=== PATIENT | male | born 1985 | race Two or more races ===

== ENCOUNTER 2019-04-25 20:49 | Emergency (ER) | payer OTHER ==
[~2019-04-25] VITALS: Ht 170.2 cm; Wt 77.1 kg
--- NOTE | 2019-04-25 21:05 | NUR ---
PT BIB RA AND NO [place] [employer] WITH FOR MEDICAL CLEARANCE. PT ARRIVED SEDATED WITH A SPIT MASK ON HIS HEAD. PT WAS TRANSFERED TO THE ER [facility] AND HANDCUFFED TO THE BED. PT IS ON THE MONITOR AND CONTINUOUS PULSE OX. PT'S O2 SAT IS 93% ON RA. PT WAS PLACED ON 2L O2 VIA NC. O2 SAT INCREASED TO 95%. WILL CONTINUE TO MONITOR THE PT. PT IS IN CUSTODY WITH [employer].
--- NOTE | 2019-04-25 21:55 | NUR ---
IN & OUT CATH DONE. APPROX 400 ML PALE YELLOW URINE OUTPUT NOTED. SAMPLE SENT TO LAB.
--- NOTE | 2019-04-25 22:02 | NUR ---
CENTRIFUGAL SCREEN TENDER IS AT THE BEDSIDE FOR BLOOD DRAW.
[2019-04-25 22:05] LABS: BASOPHILS % (AUTO) 0.3 % (0.0-2.0); EOSINOPHILS % (AUTO) 1.2 % (0.0-6.0); HEMATOCRIT 48 % (39-51); HEMOGLOBIN 16.1 g/dL (13.5-17.5); LYMPHOCYTES # (AUTO) 2.4 /CMM (0.8-4.8); LYMPHOCYTES % (AUTO) 20.6 % (20.0-44.0); MEAN CORPUSCULAR HGB CONC 34 g/dl (31.0-36.0); MEAN CORPUSCULAR VOLUME 93 fL (80-96); MONOCYTES # (AUTO) 0.5 /CMM (0.1-1.30); MONOCYTES % (AUTO) 4.7 % (2.0-12.0); NEUTROPHILS # (AUTO) 8.4 /CMM (1.8-8.9); NEUTROPHILS % (AUTO) 73.2 % (43.0-81.0); PLATELET COUNT (AUTO) 234 /CMM (150-450); RED BLOOD CELL COUNT(AUTO) 5.13 MIL/uL (4.5-6.0); WHITE BLOOD COUNT (AUTO) 11.4 K/uL (4.3-11.0)
[2019-04-25 22:17] LABS: CALCIUM, SERUM 8.7 mg/dL (8.5-10.1); CREATININE 0.9 mg/dL (0.6-1.3); POTASSIUM 3.7 mmol/L (3.5-5.1)
[2019-04-25 22:17] LABS: APPEARANCE,URINE Clear (CLEAR); BILIRUBIN,URINE Negative (NEGATIVE); BLOOD, URINE Trace-lysed Ery/uL (NEGATIVE); COLOR,URINE Light yellow (YELLOW); KETONES,URINE Negative (NEGATIVE); LEUKOCYTE ESTERASE ,URINE Negative (NEGATIVE); NITRITE, URINE Negative (NEGATIVE); PROTEIN,URINE Negative (NEGATIVE); UGLUCOSE Negative (NEGATIVE); UROBILINOGEN,URINE 0.2 EU/dL (0.2)
[2019-04-25 22:27] LABS: BACTERIA,URINE Few /HPF (None Seen); MUCUS,URINE Few /LPF (None Seen); RBC,URINE 0-2 /HPF (0-2); SQUAMOUS EPITHELIAL CELL,UR Few /HPF (None Seen); WBC,URINE 0-2 /HPF (0-3)
[2019-04-25 22:30] LABS: ALBUMIN 3.7 g/dL (3.4-5.0); BILIRUBIN,TOTAL 0.2 mg/dL (0.2-1.0); SALICYLATE 1.8 mg/dL (2.8-20.0); TOTAL PROTEIN, SERUM 7.1 g/dL (6.4-8.2)
--- NOTE | 2019-04-25 22:30 | NUR ---
PT APPEARS TO BE SLEEPING SOUNDLY WITH NO S/S OF PAIN OR DISTRESS. PT IS IN CUSTODY AND BILATERAL HANDCUFFS. PT IS ON THE MONITOR AND CONTINUOUS PULSE OX. VSS
--- NOTE | 2019-04-26 00:20 | NUR ---
PT STATED THAT HE HAD TO GO TO THE BATHROOM. POOL WAS MOVED TO THE BATHROOM DOOR AND [employer] TOOK OFF THE PT'S HANDCUFFS. [employer] IS OUTSIDE THE BATHROOM WAITING FOR PT TO FINISH.
--- NOTE | 2019-04-26 00:40 | NUR ---
PT RETURNED TO THE [facility] AND WAS HANDCUFFED TO THE BED ON THE RUE. [facility] WAS RETURNED TO ER 14 AND PT WAS ABLE TO EAT A SANDWICH AND DRINK WATER.
[2019-04-26 01:03] VITALS: BP 115/67
--- NOTE | 2019-04-26 01:05 | NUR ---
Patient discharged to [facility] CUST[facility] in stable condition. Written and verbal after care instructions given. Patient verbalizes understanding of instruction. PT AMBULATED OUT IN HANDCUFFS. PT REC'D GRIPPER SOCKS. VSS.
== END 2019-04-26 01:04 ==
LOC: ER 20:51
DX: F29 Unspecified psychosis not due to a substance or known physiological condition (principal); R41.82 Altered mental status, unspecified; L55.9 Sunburn, unspecified; R45.1 Restlessness and agitation; F10.10 Alcohol abuse, uncomplicated; R00.0 Tachycardia, unspecified; Y90.6 Blood alcohol level of 120-199 mg/100 ml
CPT/HCPCS: 36415; 80048; 80076; 80307; 80329; 81001; 85025; 99284; A6402; 80305; 81000-TC; G0480

== ENCOUNTER 2022-07-11 16:14 | Inpatient (IN) | payer MEDICAID ==
[~2022-07-11] VITALS: Ht 172.7 cm; Wt 68.0 kg
[2022-07-11] MEDS ORDERED: CEFTRIAXONE 1 G in IV D5W 50 ML IV SCH (17:30)
[2022-07-11] MEDS ORDERED: ACETAMINOPHEN 325 MG TABLET PO PRN (17:30)
[2022-07-11] MEDS ORDERED: MAG HYDROX/AL HYDROX/SIMETH 30 ML UDC PO PRN (17:30)
[2022-07-11] MEDS ORDERED: LORAZEPAM INJ 2 MG/ML VIAL IV PRN (17:30)
[2022-07-11] MEDS ORDERED: ONDANSETRON HCL/PF 4 MG/2 ML VIAL IVP PRN (17:30)
[2022-07-11] MEDS ORDERED: Z GUARD REMEDY 4 OZ OINT TP PRN (17:30)
--- NOTE | 2022-07-11 17:30 | NUR ---
MS HEAD OF MUSIC NOTE PT ADMITTED TO UNIT VIA WHEELCHAIR AT 1730 FROM [facility] WITH DIAGNOSIS OF SURGICAL WOUND INFECTION (R LEG). PARACHUTE/COMBATANT DIVER OFFICER PATRICK VAZQUEZ SAW THE PATIENT IN HIS ROOM. A/O X4. ABLE TO MAKE NEEDS KNOWN. PT ORIENTED TO STAFF AND ROOM. V/S TAKEN AND RECORDED. PT ON ROOM AIR, TOLERATING WELL, BREATHING EVEN AND UNLABORED, NO ACUTE RESPIRATORY DISTRESS NOTED. RIGHT LEG SURGICAL WOUNDS NOTED, PICTURES TAKEN, WOUND TREATMENT GIVEN. WOUND CONSULT DONE. BELONGINGS ACCOUNTED FOR, MEDICATIONS SENT TO THE PHARMACY. IV ACCESS NOTED ON RFA #20G INTACT AND PATENT, IVF OF NS @ 75ML/HR STARTED PER MD ORDER. LUNGS CLEAR ON AUSCULTATION. ABDOMEN SOFT, MILD TENDERNESS NOTED ON RIGHT UPPER QUADRANT WITH POSITIVE BOWEL SOUNDS PRESENT. SAFETY PRECAUTIONS IMPLEMENTED: BED IN LOWEST LOCKED POSITION, SIDE RAILS UP X2 CALL LIGHT AND TRAY TABLE WITHIN PLACED W/I EASY REACH OF PT. WILL ENDORSE TO HARDWARE ASSEMBLER.
[2022-07-11] MEDS ORDERED: VANCOMYCIN 1 GM in IV D5W 250ml IV ONE (18:30)
[2022-07-11] MEDS: IV NS 0.9% 1,000 ML IV PRN (18:31)
[2022-07-11 19:16] VITALS: BP 131/72
[2022-07-11 20:00] VITALS: BP 122/74
--- NOTE | 2022-07-11 20:04 | NUR ---
RLE PAIN Patient in bed, c/o right leg pain described as mild. Given Tylenol PO, will reassess pain level.
[2022-07-11] MEDS ORDERED: ZOLPIDEM TARTRATE 5 MG TABLET PO PRN (22:00)
[2022-07-11] MEDS ORDERED: MAGNESIUM HYDROXIDE 30 ML UDC PO PRN (22:00)
[2022-07-12] MEDS: HYDROCODONE/APAP 10/325MG TABLET PO PRN ×6 (02:06→20:50)
--- NOTE | 2022-07-12 02:08 | NUR ---
RLE PAIN Patient stood at bedside, voided urine. Back to bed, c/o Right leg pain 8/10 described as throbbing pain. Given [place], will reassess pain level.
--- NOTE | 2022-07-12 06:12 | NUR ---
END OF SHIFT REPORT Patient in bed, awake, stable on room air. Patient is Alert Oriented x4. IVF infusing, started on IV abx. Afebrile throughout shift. Right leg pain improved with [place]. RLE wound, specimen collected for wound cx G/S test. Dressing changed. Wound care consult. Patient homeless, social service to follow. MRSA Surveillance test. Fall precaution maintained. Will endorsed to oncoming RN.
[2022-07-12 06:42] LABS: BASOPHILS % (AUTO) 0.5 % (0.0-2.0); HEMATOCRIT 39 % (39-51); HEMOGLOBIN 13.3 g/dL (13.5-17.5); LYMPHOCYTES # (AUTO) 1.6 K/uL (0.8-4.8); LYMPHOCYTES % (AUTO) 28.8 % (20.0-44.0); MEAN CORPUSCULAR HGB CONC 34 g/dl (31.0-36.0); MEAN CORPUSCULAR VOLUME 91 fL (80-96); MONOCYTES # (AUTO) 0.5 K/uL (0.1-1.30); MONOCYTES % (AUTO) 9.4 % (2.0-12.0); NEUTROPHILS # (AUTO) 3.3 K/uL (1.8-8.9); NEUTROPHILS % (AUTO) 58.3 % (43.0-81.0); PLATELET COUNT (AUTO) 181 K/uL (150-450); RED BLOOD CELL COUNT(AUTO) 4.32 MIL/uL (4.5-6.0); WHITE BLOOD COUNT (AUTO) 5.7 K/uL (4.3-11.0)
[2022-07-12 07:17] LABS: CALCIUM, SERUM 8.6 mg/dL (8.5-10.1); CREATININE 0.7 mg/dL (0.6-1.3); MAGNESIUM 1.7 mg/dL (1.8-2.4); PHOSPHORUS 3.5 mg/dL (2.5-4.9); POTASSIUM 3.5 mmol/L (3.5-5.1)
--- NOTE | 2022-07-12 07:30 | NUR ---
RN Receiving Note PT sleeping but easily aroused, AOx4, able to express his own concerns. Patient with no signs of distress. Discussed plan of care, pt agrees. All Safety precautions taken, call and table within reach, bed at lowest position. Will continue to monitor throughout shift, provide care as needed, and medications as prescribed
[2022-07-12 08:00] VITALS: BP 106/64
[2022-07-12] MEDS: IV NS 0.9% 1,000 ML IV PRN (09:58)
[2022-07-12] MEDS: VANCOMYCIN 1 GM in IV D5W 250 ML IV SCH ×2 (10:42→17:23)
[2022-07-12] MEDS: Magnesium 1GM/D5W 100ML PREMIX 100 ML IV SCH ×2 (12:52→13:56)
[2022-07-12 16:00] VITALS: BP 118/82
[2022-07-12] MEDS ORDERED: CEFTRIAXONE 1 G in IV D5W 50 ML IV SCH (18:00)
--- NOTE | 2022-07-12 18:09 | NUR ---
Pt AOx4, able to express his own concerns. Pt remained safe throughout shift. Provided all medications and fluids as ordered and provided care as needed. Provided pain medication as needed. Educated pt on importance of fall precautions and keeping affected leg clean and dry. Call light and table within reach, bed at lowest position.
[2022-07-12 20:00] VITALS: BP 121/81
--- NOTE | 2022-07-12 20:15 | NUR ---
MS RN OPENING NOTE PATIENT AWAKE IN BED, ALERT/ORIENTED X 4, PT ABLE TO MAKE NEEDS KNOWN. PATIENT STABLE ON RA, NO S/S OF DISTRESS OR SOB NOTED, BREATHING EVEN AND UNLABORED. IV ACCESS ON RIGHT FOREARM #20G INTACT AND PATENT, INFUSING NS @ 75 ML/HR. PATIENT REPORTING 5/10 RIGHT LEG PAIN, WILL ADMINISTER PAIN MEDICATION WHEN DUE. RIGHT LEG WOUND DRESSING CLEAN, DRY AND INTACT. SAFETY MEASURES IN PLACE: CALL LIGHT WITHIN REACH, SIDE RAILS UP X 2, BED LOCKED IN LOWEST POSITION, BED ALARM ON. WILL CONTINUE TO MONITOR PATIENT
[2022-07-13] MEDS: VANCOMYCIN 1 GM in IV D5W 250 ML IV SCH ×3 (01:23→17:08)
[2022-07-13] MEDS: HYDROCODONE/APAP 10/325MG TABLET PO PRN ×3 (04:00→21:10)
--- NOTE | 2022-07-13 04:05 | NUR ---
MS RN NOTE PATIENT C/O RIGHT LEG PAIN 05/21. NORCO 10-325 MG Q4H PRN GIVEN ORDERED, WILL REASSESS PAIN LEVEL
[2022-07-13] MEDS: IV NS 0.9% 1,000 ML IV PRN (05:20)
--- NOTE | 2022-07-13 06:16 | NUR ---
MS RN CLOSING NOTE PATIENT AWAKE IN BED, ALERT/ORIENTED X 4, PT ABLE TO MAKE NEEDS KNOWN. NO SIGNIFICANT CHANGES THROUGHOUT SHIFT, PT SLEPT WELL THROUGH THE NIGHT. PATIENT STABLE ON RA, NO S/S OF DISTRESS OR SOB NOTED, BREATHING EVEN AND UNLABORED. IV ACCESS ON RIGHT FOREARM #20G INTACT AND PATENT, INFUSING NS @ 75 ML/HR. RIGHT LEG ELEVATED, WOUND DRESSING CLEAN, DRY AND INTACT. MEDICATIONS GIVEN ORDERED, PT NEEDS MET THROUGHOUT SHIFT. SAFETY MEASURES IN PLACE: CALL LIGHT WITHIN REACH, SIDE RAILS UP X 2, BED LOCKED IN LOWEST POSITION, BED ALARM ON. WILL ENDORSE TO DAYSHIFT NURSE FOR CONTINUITY OF CARE
[2022-07-13 06:23] LABS: BASOPHILS % (AUTO) 0.3 % (0.0-2.0); EOSINOPHILS % (AUTO) 2.9 % (0.0-6.0); HEMATOCRIT 39 % (39-51); HEMOGLOBIN 12.8 g/dL (13.5-17.5); LYMPHOCYTES # (AUTO) 1.6 K/uL (0.8-4.8); LYMPHOCYTES % (AUTO) 29.1 % (20.0-44.0); MEAN CORPUSCULAR HGB CONC 33 g/dl (31.0-36.0); MEAN CORPUSCULAR VOLUME 92 fL (80-96); MONOCYTES # (AUTO) 0.5 K/uL (0.1-1.30); MONOCYTES % (AUTO) 9.5 % (2.0-12.0); NEUTROPHILS # (AUTO) 3.2 K/uL (1.8-8.9); NEUTROPHILS % (AUTO) 58.2 % (43.0-81.0); PLATELET COUNT (AUTO) 169 K/uL (150-450); RED BLOOD CELL COUNT(AUTO) 4.24 MIL/uL (4.5-6.0); WHITE BLOOD COUNT (AUTO) 5.4 K/uL (4.3-11.0)
[2022-07-13 06:44] LABS: CALCIUM, SERUM 8.8 mg/dL (8.5-10.1); CREATININE 0.7 mg/dL (0.6-1.3); MAGNESIUM 2.1 mg/dL (1.8-2.4); POTASSIUM 3.7 mmol/L (3.5-5.1)
[2022-07-13 08:00] VITALS: BP 121/87
--- NOTE | 2022-07-13 08:08 | NUR ---
RN OPENING NOTE PATIENT RECEIVED IN BED, AO X 4, ABLE TO RESPONDS ALL STIMULI. IN NO ACUTE DISTRESS NOTED. RESPIRATORY EVEN AND UNLABORED ON ROOM AIR. SKIN IS WARM TO TOUCH, KEEP CLEAN/DRY. KEPT ELEVATED HOB FOR ENSURE AIRWAY AND ASPIRATION PRECAUTION, ALSO LOWEST POSITION OF THE BED, S/R UP X 2, BED ALARM IS ON AT ALL THE TIMES. ALL SAFETY PRECAUTION APPLIED. CALL LIGHT WITHIN REACH, WILL CONTINUE TO MONITOR.
[2022-07-13] MEDS: HYDROMORPHONE 1 MG/1 ML DISP.SYRIN IV PRN (10:19)
[2022-07-13] MEDS: CEFEPIME 2 GM in IV D5W 100 ML IV SCH ×2 (13:47→21:09)
[2022-07-13 16:00] VITALS: BP 157/77
--- NOTE | 2022-07-13 18:45 | NUR ---
RN CLOSING NOTE PATIENT IN BED RESTING. IN NO ACUTE DISTRESS NOTED. RESPIRATORY EVEN AND UNLABORED IN ROOM AIR. SKIN IS WARM TO TOUCH, KEEP CLEAN/DRY. C/O RIGHT LOWER LEG PAIN AND GIVEN NORCO 10MG, NO FURTHER RIGHT LEG PAIN. KEPT LOWEST BED POSITION AND LOCKED. BED ALARM IS ON AT ALL THE TIMES. ALL SAFETY MEASURED IN PLACED. CALL LIGHT WITHIN REACH, WILL ENDORSED TO NEXT SHIFT.
[2022-07-13 20:00] VITALS: BP 122/83
--- NOTE | 2022-07-13 20:00 | NUR ---
MS RN OPENING NOTE PATIENT AWAKE IN BED, ALERT/ORIENTED X 4, PT ABLE TO MAKE NEEDS KNOWN. PATIENT STABLE ON RA, NO S/S OF DISTRESS OR SOB NOTED, BREATHING EVEN AND UNLABORED. IV ACCESS ON RIGHT FOREARM #20G INTACT AND PATENT, INFUSING NS @ 75 ML/HR. PATIENT REPORTING 6-7/10 RIGHT LEG PAIN, WILL ADMINISTER PAIN MEDICATION WHEN DUE. RIGHT LEG WOUND DRESSING CLEAN, DRY AND INTACT. SAFETY MEASURES IN PLACE: CALL LIGHT WITHIN REACH, SIDE RAILS UP X 2, BED LOCKED IN LOWEST POSITION, BED ALARM ON. WILL CONTINUE TO MONITOR PATIENT
--- NOTE | 2022-07-13 21:14 | NUR ---
MS RN NOTE PATIENT C/O 8/10 RIGHT LEG PAIN. PRN NORCO 10-325 MG PO GIVEN ORDERED. WILL CONTINUE TO ASSESS PATIENT
[2022-07-14] MEDS: IV NS 0.9% 1,000 ML IV PRN (01:10)
[2022-07-14] MEDS: VANCOMYCIN 1 GM in IV D5W 250 ML IV SCH ×3 (01:10→17:44)
[2022-07-14] MEDS: HYDROCODONE/APAP 10/325MG TABLET PO PRN ×5 (01:11→21:48)
--- NOTE | 2022-07-14 01:20 | NUR ---
MS RN NOTE PATIENT C/O 8/10 RIGHT LEG PAIN AFTER AMBULATING TO BATHROOM. PRN NORCO 10-325 MG Q4H GIVEN ORDERED. WILL CONTINUE TO MONITOR PATIENT
--- NOTE | 2022-07-14 05:14 | NUR ---
MS RN NOTE PATIENT C/O 8/10 RIGHT LEG PAIN. PRN NORCO 10-325 MG PO GIVEN ORDERED. WILL CONTINUE TO ASSESS PATIENT
[2022-07-14 06:01] LABS: CREATININE 0.8 mg/dL (0.6-1.3); POTASSIUM 3.8 mmol/L (3.5-5.1)
--- NOTE | 2022-07-14 06:25 | NUR ---
MS RN CLOSING NOTE PATIENT SLEEPING IN BED, ALERT/ORIENTED X 4, PT ABLE TO MAKE NEEDS KNOWN. NO SIGNIFICANT CHANGES THROUGHOUT SHIFT. PATIENT STABLE ON RA, NO S/S OF DISTRESS OR SOB NOTED, BREATHING EVEN AND UNLABORED. IV ACCESS ON LEFT HAND #22G INTACT AND PATENT, INFUSING NS @ 75 ML/HR. RIGHT LEG ELEVATED, WOUND DRESSING CLEAN, DRY AND INTACT, WOUND PHOTOS TAKEN THIS SHIFT. MEDICATIONS GIVEN ORDERED, PT NEEDS MET THROUGHOUT SHIFT. SAFETY MEASURES IN PLACE: CALL LIGHT WITHIN REACH, SIDE RAILS UP X 2, BED LOCKED IN LOWEST POSITION, BED ALARM ON. WILL ENDORSE TO DAYSHIFT NURSE FOR CONTINUITY OF CARE
--- NOTE | 2022-07-14 07:21 | NUR ---
RN OPENING NOTES RECEIVED PATIENT AWAKE IN BED, ALERT/ORIENTED X 3, PATIENT STABLE ON RA, NO S/S OF DISTRESS OR SOB NOTED, BREATHING EVEN AND UNLABORED. IV ACCESS ON RIGHT FOREARM #20G INTACT AND PATENT, INFUSING NS @ 75 ML/HR. RIGHT LEG WOUND DRESSING CLEAN, DRY AND INTACT. SAFETY MEASURES IN PLACE: CALL LIGHT WITHIN REACH, SIDE RAILS UP X 2, BED LOCKED IN LOWEST POSITION, BED ALARM ON. WILL CONTINUE TO MONITOR PATIENT.
[2022-07-14 08:00] VITALS: BP 122/83
[2022-07-14] MEDS: CEFEPIME 2 GM in IV D5W 100 ML IV SCH ×2 (08:46→20:04)
--- NOTE | 2022-07-14 10:22 | NUR ---
WOUND CARE CONSULT: PT PRESENTS WITH CLOSED INCISIONS TO RT THIGH AND RT LOWER LEG WELL OPEN ABRASION TO RT LATERAL LOWER LEG AND DRY ESCHAR TO RT DORSAL FOOT, ALL PRESENT ON ADMISSION. DR YOU CALLED FOR SURGICAL/DPM CONSULT REQUEST. XEROFORM DSGS ARE IN USE FOR OPEN AREAS, COVERED WITH ABD PADS AND SECURED WITH KERLIX/BURN NET. DISCUSSED SKIN PROTECTION WITH NURSING STAFF. MD IN AGREEMENT WITH PLAN OF CARE.
[2022-07-14 16:00] VITALS: BP 126/87
[2022-07-14] MEDS: HYDROMORPHONE 1 MG/1 ML DISP.SYRIN IV PRN (16:10)
--- NOTE | 2022-07-14 16:17 | NUR ---
RN NOTES PT COMPLAINED OF RIGHT FOOT/LEG PAIN, 7-8 SCALE, PRN DILAUDID 1MG IV PUSH GIVEN AT 1610. WILL CONTINUE TO MONITOR AND REASSESS PATIENT.
--- NOTE | 2022-07-14 17:30 | NUR ---
RN NOTES RUSSELL GARCIA CAME TO SEE PT AND ORDERED TO DO RIGHT LOWER LEG WOUND DBRIDEMENTS. PT SIGNED CONSENT. DR SUAREZ WITH ORDER TO GIVE PRN NORCO 10/325 MG PO DURING PROCEDURE AND WAS ADMINISTERED AT 1659. WOUND ARIELLA REMOVED BY ERICK.
--- NOTE | 2022-07-14 18:32 | NUR ---
RN CLOSING NOTE PATIENT AWAKE IN BED, ALERT/ORIENTED X 4, PT ABLE TO MAKE NEEDS KNOWN. PATIENT STABLE ON RA, NO S/S OF DISTRESS OR SOB NOTED, BREATHING EVEN AND UNLABORED. IV ACCESS ON LEFT HAND #22G INTACT AND PATENT, INFUSING NS @ 75 ML/HR. RIGHT LEG ELEVATED, WOUND DRESSING CLEAN, DRY AND INTACT. DR SUAREZ CAME TO DO WOUND DEBRIDEMENT. MEDICATIONS GIVEN ORDERED FOR PAIN, PT NEEDS MET THROUGHOUT SHIFT. SAFETY MEASURES IN PLACE: CALL LIGHT WITHIN REACH, SIDE RAILS UP X 2, BED LOCKED IN LOWEST POSITION, BED ALARM ON. WILL ENDORSE TO NIGHT NURSE FOR CONTINUITY OF CARE.
--- NOTE | 2022-07-14 19:15 | NUR ---
MS RN OPENING NOTE PATIENT AWAKE IN BED, ALERT AND ORIENTED X4, NO S/S OF DISTRESS OR SOB NOTED. BREATHING EVEN AND UNLABORED. ABLE TO MAKE NEEDS KNOWN. PATIENT STABLE ON RA. IV ACCESS ON LEFT HAND #22G INTACT AND PATENT, INFUSING NS @ 75 ML/HR. ON S/P WOUND DEBRIDEMENT ON RIGHT LOWER EXTREMITY. WOUND DRESSING CLEAN, DRY AND INTACT. PT TO REMAIN RLE NWB IN WALKER/CRUTCHES. SAFETY MEASURES IN PLACE: CALL LIGHT WITHIN REACH, SIDE RAILS UP X2, BED LOCKED IN LOWEST POSITION, BED ALARM ON. WILL CONTINUE TO MONITOR PATIENT THROUGHOUT THE SHIFT.
[2022-07-14 20:00] VITALS: BP 134/87
[2022-07-15] MEDS: VANCOMYCIN 1 GM in IV D5W 250 ML IV SCH ×2 (02:14→10:16)
[2022-07-15] MEDS: IV NS 0.9% 1,000 ML IV PRN (03:39)
[2022-07-15] MEDS: HYDROCODONE/APAP 10/325MG TABLET PO PRN ×4 (05:08→20:10)
[2022-07-15 05:54] LABS: BASOPHILS % (AUTO) 0.6 % (0.0-2.0); EOSINOPHILS % (AUTO) 3.9 % (0.0-6.0); HEMATOCRIT 40 % (39-51); HEMOGLOBIN 13.3 g/dL (13.5-17.5); LYMPHOCYTES % (AUTO) 33.1 % (20.0-44.0); MEAN CORPUSCULAR HGB CONC 33 g/dl (31.0-36.0); MEAN CORPUSCULAR VOLUME 91 fL (80-96); MONOCYTES # (AUTO) 0.6 K/uL (0.1-1.30); MONOCYTES % (AUTO) 10.5 % (2.0-12.0); NEUTROPHILS # (AUTO) 3.1 K/uL (1.8-8.9); NEUTROPHILS % (AUTO) 51.9 % (43.0-81.0); PLATELET COUNT (AUTO) 175 K/uL (150-450); RED BLOOD CELL COUNT(AUTO) 4.39 MIL/uL (4.5-6.0); WHITE BLOOD COUNT (AUTO) 5.9 K/uL (4.3-11.0)
--- NOTE | 2022-07-15 06:09 | NUR ---
MS RN CLOSING NOTE PATIENT SLEEPING IN BED, AROUSED EASILY. NO S/S OF DISTRESS OR SOB NOTED. BREATHING EVEN AND UNLABORED. ABLE TO MAKE NEEDS KNOWN. PATIENT STABLE ON RA. IV ACCESS ON LEFT HAND #22G INTACT AND PATENT, INFUSING NS @ 75 ML/HR. ON S/P WOUND DEBRIDEMENT ON RIGHT LOWER EXTREMITY. WOUND DRESSING C/D/I. PT TO REMAIN RLE NWB IN WALKER/CRUTCHES. SAFETY MEASURES IN PLACE: CALL LIGHT WITHIN REACH, SIDE RAILS UP X2, BED LOCKED IN LOWEST POSITION, BED ALARM ON. WILL ENDORSE TO DAY SHIFT NURSE FOR CONTINUITY OF CARE.
[2022-07-15 06:29] LABS: CALCIUM, SERUM 8.8 mg/dL (8.5-10.1); CREATININE 0.8 mg/dL (0.6-1.3); POTASSIUM 3.7 mmol/L (3.5-5.1)
--- NOTE | 2022-07-15 07:40 | NUR ---
MS RN OPENING NOTE PATIENT AWAKE IN BED, ALERT AND ORIENTED X4, NO S/S OF DISTRESS OR SOB NOTED. STABLE ON RA, BREATHING EVEN AND UNLABORED. ABLE TO MAKE NEEDS KNOWN. WAS WITH IV ACCESS ON LEFT HAND #22G INTACT AND PATENT, INFUSING NS @ 75 ML/HR, HOWEVER SHOWING REDNESS AND TENDERNESS, STARTED A NEW IV LINE ON RIGHT FOREARM GAUGE G#20 RUNNING NS @75 ML/HR, PATIENT, FLUSHING WELL. OLD LINE REMOVED, COVERED WITH DRESSING, NO S/SX OF BLEEDING. S/P WOUND DEBRIDEMENT ON RIGHT LOWER EXTREMITY. WOUND DRESSING CLEAN, DRY AND INTACT. PT TO REMAIN RLE NWB IN WALKER/CRUTCHES. SAFETY MEASURES IN PLACE: CALL LIGHT AND TRAY TABLE WITHIN REACH, SIDE RAILS UP X2, BED LOCKED IN LOWEST POSITION, BED ALARM ON. WILL CONTINUE TO MONITOR PATIENT THROUGHOUT THE SHIFT.
[2022-07-15 08:00] VITALS: BP 140/75
[2022-07-15] MEDS: CEFEPIME 2 GM in IV D5W 100 ML IV SCH ×2 (09:05→20:53)
--- NOTE | 2022-07-15 09:30 | NUR ---
RN NOTES - PT AT BEDSIDE
--- NOTE | 2022-07-15 11:15 | NUR ---
RN NOTES WOUND CARE PROVIDED ON THE RIGHT LOWER LEG WOUNDS.
--- NOTE | 2022-07-15 11:20 | NUR ---
RN NOTES- LUÍS SAMANIEGO NP AT BEDSIDE
[2022-07-15] MEDS: GENTAMICIN 0.1% OINT 15 GM TUBE TP SCH ×2 (14:38→17:04)
[2022-07-15 16:00] VITALS: BP 128/76
--- NOTE | 2022-07-15 18:45 | NUR ---
MS RN CLOSING NOTE PATIENT AWAKE IN BED, ALERT AND ORIENTED X4, NO S/S OF DISTRESS OR SOB NOTED. STABLE ON RA, BREATHING EVEN AND UNLABORED. ABLE TO MAKE NEEDS KNOWN.IV LINE ON RIGHT FOREARM GAUGE G#20 RUNNING NS @75 ML/HR, PATIENT, FLUSHING WELL. WOUND CARE PROVIDED. WOUND DRESSING CLEAN, DRY AND INTACT. PT TO REMAIN RLE NWB IN WALKER/CRUTCHES. SAFETY MEASURES MAINTAINED: CALL LIGHT AND TRAY TABLE WITHIN REACH, SIDE RAILS UP X2, BED LOCKED IN LOWEST POSITION, BED ALARM ON. WILL ENDORSE TO THE ULTRASOUND APPLICATIONS SPECIALIST.
[2022-07-15 20:00] VITALS: BP 137/86
--- NOTE | 2022-07-15 20:23 | NUR ---
RLE PAIN Patient stood at bedside, voided urine. C/o right leg pain 8/10. Given PRN [place], will reassess pain level.
[2022-07-16] MEDS: IV NS 0.9% 1,000 ML IV PRN (01:49)
[2022-07-16] MEDS: HYDROCODONE/APAP 10/325MG TABLET PO PRN ×3 (01:51→16:11)
[2022-07-16 06:01] LABS: BASOPHILS % (AUTO) 0.7 % (0.0-2.0); EOSINOPHILS % (AUTO) 4.1 % (0.0-6.0); HEMATOCRIT 43 % (39-51); LYMPHOCYTES # (AUTO) 1.8 K/uL (0.8-4.8); LYMPHOCYTES % (AUTO) 32.3 % (20.0-44.0); MEAN CORPUSCULAR HGB CONC 33 g/dl (31.0-36.0); MEAN CORPUSCULAR VOLUME 91 fL (80-96); MONOCYTES # (AUTO) 0.5 K/uL (0.1-1.30); MONOCYTES % (AUTO) 8.9 % (2.0-12.0); PLATELET COUNT (AUTO) 183 K/uL (150-450); WHITE BLOOD COUNT (AUTO) 5.6 K/uL (4.3-11.0)
[2022-07-16 06:23] LABS: CALCIUM, SERUM 9.2 mg/dL (8.5-10.1); CREATININE 0.8 mg/dL (0.6-1.3); MAGNESIUM 1.9 mg/dL (1.8-2.4); PHOSPHORUS 4.2 mg/dL (2.5-4.9); POTASSIUM 3.6 mmol/L (3.5-5.1)
--- NOTE | 2022-07-16 06:24 | NUR ---
END OF SHIFT REPORT Patient in bed, Alert Oriented x4. IV RFA intact, IVF infusing. On IV abx. Afebrile throughout shift. Stable on room air. Stood at bedside with crutches, right leg pain improved with PRN [place]. RLE wound dressing changed. Good appetite. No BM during the shift, voided urine good output. Fall precaution maintained. Will endorse to oncoming RN.
--- NOTE | 2022-07-16 07:40 | NUR ---
MS RN OPENING NOTE RECEIVED PATIENT AWAKE IN BED, ALERT AND ORIENTED X4, NO S/S OF DISTRESS OR SOB NOTED. STABLE ON RA, BREATHING EVEN AND UNLABORED. ABLE TO MAKE NEEDS KNOWN. WAS WITH IV ACCESS ON RIGHT FOREARM #20G INTACT AND PATENT, INFUSING NS @ 75 ML/HR. PT HAS WOUND DRESSING ON THE RIGHT LEG, CLEAN, DRY AND INTACT - NO SOAKING OF BODILY FLUIDS. PT TO REMAIN RLE NWB IN CRUTCHES. SAFETY MEASURES IN PLACE: CALL LIGHT AND TRAY TABLE WITHIN REACH, SIDE RAILS UP X2, BED LOCKED IN LOWEST POSITION, BED ALARM ON. WILL CONTINUE TO MONITOR PATIENT THROUGHOUT THE SHIFT.
[2022-07-16 08:00] VITALS: BP 120/81
[2022-07-16] MEDS: CEFEPIME 2 GM in IV D5W 100 ML IV SCH ×2 (08:09→20:15)
[2022-07-16] MEDS: GENTAMICIN 0.1% OINT 15 GM TUBE TP SCH ×2 (08:37→16:12)
--- NOTE | 2022-07-16 09:05 | NUR ---
RN NOTES - PT ORDERED A PAIR OF CRUTCHES FROM [employer] FOR THE PATIENT, RECEIVED TO REPLACE CURRENT ONES FROM PT. MEASUREMENTS SET BY [employer]. PATIENT IS NOTED WALKING ON THE HALLWAY WITH IT WITH PT.
--- NOTE | 2022-07-16 09:10 | NUR ---
RN NOTES - PAIN MEDICATION PATIENT REPORTS 8/10 LEFT LEG PAIN, ACHING, THROBBING. GIVEN NORCO 5MG ORDERED AT 0905. WILL CONTINUE TO MONITOR.
--- NOTE | 2022-07-16 10:43 | NUR ---
RN NOTES - IV INFILTRATED RFA G#20 IV ACCESS - INFILTRATED EVIDENCED BY A BLEB AND REDNESS IN THE AREA. REMOVED AND COVERED WITH GAUZE - NO BLEEDING NOTED. WILL START A NEW LINE.
[2022-07-16 16:00] VITALS: BP 118/78
--- NOTE | 2022-07-16 17:45 | NUR ---
RN NOTES - IV LINE REINSERTED SUCCESSFULLY STARTED LFA G#20 IV ACCESS, PATENT AND FLUSHING WELL, RUNNING NS @75 ML/HR.
--- NOTE | 2022-07-16 19:00 | NUR ---
MS RN CLOSING NOTE RECEIVED PATIENT AWAKE IN BED, ALERT AND ORIENTED X4, NO S/S OF DISTRESS OR SOB NOTED. STABLE ON RA, BREATHING EVEN AND UNLABORED. ABLE TO MAKE NEEDS KNOWN. WAS WITH IV ACCESS ON L FOREARM #20G INTACT AND PATENT, INFUSING NS @ 75 ML/HR. WOUND CARE PROVIDED, PT HAS INTACT WOUND DRESSING ON THE RIGHT LEG, CLEAN, DRY AND INTACT - NO SOAKING OF BODILY FLUIDS. PT TO REMAIN RLE NWB IN CRUTCHES. ALL NEEDS ATTENDED AND DUE MEDS GIVEN DURING MY SHIFT. SAFETY MEASURES IN PLACE: CALL LIGHT AND TRAY TABLE WITHIN REACH, SIDE RAILS UP X2, BED LOCKED IN LOWEST POSITION, BED ALARM ON. ENDORSED TO THE NIGHT NURSE.
--- NOTE | 2022-07-16 19:45 | NUR ---
MS RN OPENING NOTE RECEIVED PATIENT AWAKE IN BED, ALERT AND ORIENTED X4, NO S/S OF DYSPNEA OR SOB NOTED. VITAL SIGNS STABLE. SpO2= 97% RA. BREATHING IS EVEN AND UNLABORED. ABLE TO MAKE NEEDS KNOWN. IV ACCESS TO L FOREARM #20G INTACT AND PATENT, INFUSING NS @ 75 ML/HR. PT HAS INTACT WOUND DRESSING TO THE RIGHT CALF THAT IS CLEAN, DRY AND INTACT. PT TO REMAIN WITH RLE NWB BUT ABLE TO USE CRUTCHES TO AMBULATE. SAFETY MEASURES IN PLACE: CALL LIGHT AND TRAY TABLE WITHIN REACH, SIDE RAILS UP X2, BED LOCKED IN LOWEST POSITION, BED ALARM ON. WILL CONTINUE TO MONITOR.
[2022-07-16 20:00] VITALS: BP 129/75
[2022-07-16] MEDS: HYDROMORPHONE 1 MG/1 ML DISP.SYRIN IV PRN (20:14)
[2022-07-17] MEDS: HYDROMORPHONE 1 MG/1 ML DISP.SYRIN IV PRN ×5 (00:18→20:23)
[2022-07-17 06:13] LABS: BASOPHILS % (AUTO) 0.6 % (0.0-2.0); EOSINOPHILS % (AUTO) 3.4 % (0.0-6.0); HEMATOCRIT 46 % (39-51); HEMOGLOBIN 15.3 g/dL (13.5-17.5); LYMPHOCYTES # (AUTO) 2.1 K/uL (0.8-4.8); LYMPHOCYTES % (AUTO) 34.2 % (20.0-44.0); MEAN CORPUSCULAR HGB CONC 34 g/dl (31.0-36.0); MEAN CORPUSCULAR VOLUME 91 fL (80-96); MONOCYTES # (AUTO) 0.5 K/uL (0.1-1.30); MONOCYTES % (AUTO) 8.4 % (2.0-12.0); NEUTROPHILS # (AUTO) 3.3 K/uL (1.8-8.9); NEUTROPHILS % (AUTO) 53.4 % (43.0-81.0); PLATELET COUNT (AUTO) 208 K/uL (150-450); RED BLOOD CELL COUNT(AUTO) 5.04 MIL/uL (4.5-6.0); WHITE BLOOD COUNT (AUTO) 6.3 K/uL (4.3-11.0)
[2022-07-17 06:27] LABS: CALCIUM, SERUM 9.6 mg/dL (8.5-10.1); CREATININE 0.8 mg/dL (0.6-1.3); PHOSPHORUS 4.6 mg/dL (2.5-4.9); POTASSIUM 3.9 mmol/L (3.5-5.1)
--- NOTE | 2022-07-17 07:01 | NUR ---
MS RN CLOSING NOTES PATIENT AWAKE AND IN BATHROOM GETTING READY FOR THE DAY. ALERT AND ORIENTED X 4 AND ABLE TO MAKE NEEDS KNOWN. VITAL SIGNS STABLE. NO S/S OF DYSPNEA OR SOB NOTED. BREATHING IS EVEN AND UNLABORED. ABLE TO MAKE NEEDS KNOWN. IV ACCESS TO L FOREARM #20G INTACT AND PATENT, INFUSING NS @ 75 ML/HR. PT HAS INTACT WOUND DRESSING TO THE RIGHT CALF THAT IS CLEAN, DRY AND INTACT. PT TTWB TO RLE BUT ABLE TO USE CRUTCHES TO AMBULATE. SAFETY MEASURES IN PLACE: CALL LIGHT AND TRAY TABLE WITHIN REACH, SIDE RAILS UP X2, BED LOCKED IN LOWEST POSITION, BED ALARM ON. WILL ENDORSE TO NEXT SHIFT FOR ANAI.
[2022-07-17 08:34] VITALS: BP 126/76
[2022-07-17] MEDS: CEFEPIME 2 GM in IV D5W 100 ML IV SCH ×2 (09:58→20:22)
[2022-07-17] MEDS: GENTAMICIN 0.1% OINT 15 GM TUBE TP SCH ×2 (10:03→19:00)
[2022-07-17 16:03] VITALS: BP 126/66
--- NOTE | 2022-07-17 16:57 | NUR ---
MS RN OPENING NOTES: RECEIVED PATIENT AWAKE IN BED, ALERT AND ORIENTED X4, NO S/S OF SOB NOTED. VITAL SIGNS STABLE. BREATHING IS EVEN AND UNLABORED. ABLE TO MAKE NEEDS KNOWN. IV ACCESS TO L FOREARM #20G INTACT AND PATENT, INFUSING NS @ 75 ML/HR. PT HAS INTACT WOUND DRESSING TO THE RIGHT CALF THAT IS CLEAN, DRY AND INTACT. PT TO REMAIN WITH RLE NWB BUT ABLE TO USE CRUTCHES TO AMBULATE. SAFETY MEASURES IN PLACE: CALL LIGHT AND TRAY TABLE WITHIN REACH, SIDE RAILS UP X2, BED LOCKED IN LOWEST POSITION, BED ALARM ON; WILL CONTINUE PLAN OF CARE DURING SHIFT.
--- NOTE | 2022-07-17 18:38 | NUR ---
MS RN CLOSING NOTES: PATIENT AWAKE IN BED, ALERT AND ORIENTED X4, NO S/S OF SOB NOTED, ON RA TOLERATING WELL. VITAL SIGNS STABLE. BREATHING IS EVEN AND UNLABORED. ABLE TO MAKE NEEDS KNOWN. IV ACCESS @ L FOREARM #20G INTACT AND PATENT, INFUSING NS @ 75 ML/HR. WOUND CARE DONE, HAS INTACT WOUND DRESSING TO THE RIGHT CALF THAT IS CLEAN, DRY AND INTACT. ALL DUE MEDS GIVEN AND NEEDS MET. DENIES PAIN AT THIS TIME. PT TO REMAIN WITH RLE NON WEIGHT BEARING BUT ABLE TO USE CRUTCHES TO AMBULATE. SAFETY MEASURES IN PLACE: CALL LIGHT AND TRAY TABLE WITHIN REACH, SIDE RAILS UP X2, BED LOCKED IN LOWEST POSITION, BED ALARM ON, WILL ENDORSE TO PM SHIFT.
--- NOTE | 2022-07-17 19:41 | NUR ---
MS RN OPENING NOTES: PATIENT AWAKE IN BED, ALERT AND ORIENTED X4, NO S/S OF SOB NOTED, ON RA TOLERATING WELL BREATHING IS EVEN AND UNLABORED. ABLE TO MAKE NEEDS KNOWN. IV ACCESS @ L FOREARM #20G INTACT AND PATENT, INFUSING NS @ 75 ML/HR. HAS INTACT WOUND DRESSING TO THE RIGHT CALF THAT IS CLEAN, DRY AND INTACT. WITH RLE NON WEIGHT BEARING BUT ABLE TO USE CRUTCHES TO AMBULATE. SAFETY MEASURES IN PLACE: CALL LIGHT AND TRAY TABLE WITHIN REACH, SIDE RAILS UP X2, BED LOCKED IN LOWEST POSITION, BED ALARM ON.
[2022-07-17 20:00] VITALS: BP 122/74
--- NOTE | 2022-07-17 20:30 | NUR ---
rn notes prn dilaudid given for 8/10 pain on a numeric pain scale. tolerated well.
[2022-07-18] MEDS: HYDROMORPHONE 1 MG/1 ML DISP.SYRIN IV PRN ×6 (00:32→21:30)
--- NOTE | 2022-07-18 00:36 | NUR ---
rn notes prn Dilaudid given for pain /10 on a numeric pain scale tolerated well.
--- NOTE | 2022-07-18 04:40 | NUR ---
RN NOTES PRN DILAUDID GIVEN FOR 8/10 PAIN TOLERATED WELL.
--- NOTE | 2022-07-18 06:37 | NUR ---
MS RN CLOSING NOTES: PATIENT AWAKE IN BED, ALERT AND ORIENTED X4, NO S/S OF SOB NOTED, ON RA TOLERATING WELL BREATHING IS EVEN AND UNLABORED. ABLE TO MAKE NEEDS KNOWN. IV ACCESS @ L FOREARM #20G INTACT AND PATENT, INFUSING NS @ 75 ML/HR. HAS INTACT WOUND DRESSING TO THE RIGHT CALF THAT IS CLEAN, DRY AND INTACT. WITH RLE NON WEIGHT BEARING BUT ABLE TO USE CRUTCHES TO AMBULATE. PAIN MANAGEMENT PROVIDED NEEDED AND TOLERATED WELL. SAFETY MEASURES IN PLACE: CALL LIGHT AND TRAY TABLE WITHIN REACH, SIDE RAILS UP X2, BED LOCKED IN LOWEST POSITION, BED ALARM ON. WILL ENDORSE TO DAY SHIFT NURSE
--- NOTE | 2022-07-18 07:30 | NUR ---
MS RN OPENING NOTES: RECEIVED PATIENT AWAKE, ALERT AND ORIENTED X4, NO S/S OF SOB NOTED. VITAL SIGNS STABLE. BREATHING IS EVEN AND UNLABORED. ABLE TO MAKE NEEDS KNOWN. IV ACCESS TO L FOREARM #20G INTACT AND PATENT, INFUSING NS @ 75 ML/HR. PT HAS INTACT WOUND DRESSING TO THE RIGHT CALF THAT IS CLEAN, DRY AND INTACT. PT TO REMAIN WITH RLE NWB BUT ABLE TO USE CRUTCHES TO AMBULATE. SAFETY MEASURES IN PLACE: CALL LIGHT AND TRAY TABLE WITHIN REACH, SIDE RAILS UP X2, BED LOCKED IN LOWEST POSITION, BED ALARM ON; WILL CONTINUE PLAN OF CARE DURING SHIFT.
[2022-07-18] MEDS: GENTAMICIN 0.1% OINT 15 GM TUBE TP SCH ×2 (08:27→20:15)
[2022-07-18] MEDS: CEFEPIME 2 GM in IV D5W 100 ML IV SCH ×2 (08:27→21:25)
--- NOTE | 2022-07-18 15:27 | NUR ---
SS Consult: SS consult requested for homelessness. The pt. is a 37-year-old male patient who came in for wound infection in the right foot per EMR. Upon SS consult, the pt. is Alert & Oriented x 4 and makes good eye contact. The pt. appears well-groomed with elevated mood & fat affect. speech and thought process are WNL. Pt. remained calm & cooperative throughout interview. Pt. denies current SI/ HI and denies hallucinations. SW explored Patients mental health Hx. Pt. denies any mental illness. SW explored pt.s living situation. Patient states he has been sleeping outside for about 10 months. Pt. says he drinks alcohol, but it is not a problem for him. SW explored pt.s support system. Pt. states he has no support system. Per pt. states he just applied for [employer], Disability and GR. Plan: Pt. stated that he prefer no penitentiary placement but is willing to go if he needs continues IV antibiotics to be administered by HH. RITIKA discussed with ELODIA Ortega. SW called [facility][[address] [place] [address] ]. Their intake stated he need to line up at 6:0 am 7 am to get a bed daily. SW was transferred to their manager clinical informatics Ivett Davidson [phone] and left voicemail about HH being able to administer IV antibiotics in penitentiary daily. RITIKA provided pt. with homeless resources, and he accepted them. SW signed homeless waiver and it was placed in the pt.s chart. Year-round shelters: [facility] [address] [place] [address] ; [facility] [address] [place] [address]; [facility] [id number] [facility] [address] Hygiene: [facility]: [address] [place] ; [facility] [address] [facility] ; [facility] [address] . Food Resources: [facility]- [address] [place]; Meet Each Need with Dign[facility] ([facility]) [address] [place]; [facility] [address] [facility]; [facility] [address] [facility]. Mental Health resources provided: [facility] [address] [place] [address] ; [facility] [address] [facility] [address], [place], [place] [id number] ; [facility] [address] [facility] [place], [place] [phone] ; [facility] [place], [place] [id number] Healthcare Clinics: [facility] [address] [facility], [address] [place]. [place] ; [facility] [address] [facility] [address] [place] [address]; [facility] [place] [address] [place] [address] [phone] Counseling--Outpatient [facility] [address] [facility], [address] [place], [place] [address] (Specializes in in-depth psychotherapy for emotional distress: anxiety, depression, interpersonal conflicts, life transitions, childhood abuse) [facility] [address] [place] [address] (Assist with solving problem marital difficulties, separation & divorce, aging parents, & grief, chronic & terminal illness) [facility] [address] [place] [address] (Deal with loss & grief, anxiety, marital difficulties) Homebound/Mental Health Services [address], [address] [place], [place] [address] (Provide in-home mental services to people who are incapable of leaving their homes) [facility] Senior Service[facility] Center [address] [place] [address] [facility] [address] [place] [address] PSYCHIATRIC OUTPATIENT SERVICES [facility] Partial Hospitalization and Intensive Outpatient Program (Managed Care and [place] Only)[address] [facility] [phone] [facility] Partial Hospitalization and Outpatient [id number] [place], [place] [phone] [facility] [place] [id number] [facility]. [address] [place], [place] [phone] [facility] Partial Hospitalization and Outpatient [id number] [facility], [phone] Substance Abuse resources provided included: [facility] Substance Abuse Self-Helpline ([facility]) ; [facility] [address] [facility]. [place] [address] ; [facility] [address] [facility] [address] ; [facility] [address] [address] ; [facility] [address] [facility] [address] ; [facility] [address] [facility] [address] ; [facility] [address] [facility] [address] ; [facility] Substance Abuse Helpline([facility])-[facility] ; [facility] ; [facility]; [facility] [place]; [facility] [place]; [facility] [place]; [facility]; [facility]; [facility] [place]; [facility]. [place]; Alcoholics Anonymous -[facility]; Zj-Oqpy-Mzieynw ; Marijuana Anonymous [facility]; Narcotics Anonymous www.na.org;
--- NOTE | 2022-07-18 19:38 | NUR ---
MS RN CLOSING NOTES: PATIENT AWAKE IN BED, ALERT AND ORIENTED X4, NO S/S OF SOB NOTED, ON RA TOLERATING WELL. VITAL SIGNS STABLE. BREATHING IS EVEN AND UNLABORED. ABLE TO MAKE NEEDS KNOWN. IV ACCESS @ R FOREARM #20G INTACT AND PATENT, INFUSING NS @ 75 ML/HR. WOUND CARE DONE, HAS WOUND DRESSING TO THE RIGHT CALF THAT IS CLEAN, DRY AND INTACT. ALL DUE MEDS GIVEN AND NEEDS MET. DENIES PAIN AT THIS TIME. PT TO REMAIN WITH RLE NON WEIGHT BEARING BUT ABLE TO USE CRUTCHES TO AMBULATE. SAFETY MEASURES IN PLACE: CALL LIGHT AND TRAY TABLE WITHIN REACH, SIDE RAILS UP X2, BED LOCKED IN LOWEST POSITION, BED ALARM ON, WILL ENDORSE TO PM SHIFT.
--- NOTE | 2022-07-18 19:48 | NUR ---
MS RN OPENING NOTES: PATIENT AWAKE IN BED, ALERT AND ORIENTED X4, NO S/S OF SOB NOTED, ON RA TOLERATING WELL. VITAL SIGNS STABLE. BREATHING IS EVEN AND UNLABORED. ABLE TO MAKE NEEDS KNOWN. IV ACCESS @ R FOREARM #20G INTACT AND PATENT, INFUSING NS @ 75 ML/HR. HAS WOUND DRESSING TO THE RIGHT CALF THAT IS CLEAN, DRY AND INTACT. ALL DUE MEDS GIVEN AND NEEDS MET. DENIES PAIN AT THIS TIME. PT TO REMAIN WITH RLE NON WEIGHT BEARING BUT ABLE TO USE CRUTCHES TO AMBULATE. SAFETY MEASURES IN PLACE: CALL LIGHT AND TRAY TABLE WITHIN REACH, SIDE RAILS UP
[2022-07-18 20:00] VITALS: BP 120/68
--- NOTE | 2022-07-18 21:40 | NUR ---
RN NOTES PRN DILAUDID GIVEN FOR 8/10 PAIN TOLERATED WELL.
[2022-07-19] MEDS: HYDROMORPHONE 1 MG/1 ML DISP.SYRIN IV PRN ×3 (01:45→10:38)
--- NOTE | 2022-07-19 06:44 | NUR ---
MS RN CLOSING NOTES: PATIENT AWAKE IN BED, ALERT AND ORIENTED X4, NO S/S OF SOB NOTED, ON RA TOLERATING WELL. VITAL SIGNS STABLE. BREATHING IS EVEN AND UNLABORED. ABLE TO MAKE NEEDS KNOWN. IV ACCESS @ R FOREARM#20G INTACT AND PATENT, INFUSING NS @ 75 ML/HR. HAS WOUND DRESSING TO THE RIGHT CALF THAT IS CLEAN, DRY AND INTACT. ALL DUE MEDS GIVEN AND NEEDS MET. PAIN MANAGEMENT PROVIDED NEEDED. SAFETY MEASURES IN PLACE: CALL LIGHT AND TRAY TABLE WITHIN REACH, SIDE RAILS UP
--- NOTE | 2022-07-19 07:48 | NUR ---
MS RN OPENING NOTES: PATIENT AWAKE IN BED, ALERT AND ORIENTED X4, NO S/S OF SOB OR DISTRESS NOTED, ON RA TOLERATING WELL. V . ABLE TO MAKE NEEDS KNOWN. IV ACCESS @ R FOREARM #20G INTACT AND PATENT, INFUSING NS @ 75 ML/HR. HAS WOUND DRESSING TO THE RIGHT CALF THAT IS CLEAN, DRY AND INTACT.. DENIES PAIN AT THIS TIME. PT TO REMAIN WITH RLE NON WEIGHT BEARING BUT ABLE TO USE CRUTCHES TO AMBULATE. SAFETY MEASURES IN PLACE: CALL LIGHT AND TRAY TABLE WITHIN REACH, SIDE RAILS UP , WILL CONTINUE TO MONITOR
[2022-07-19 08:00] VITALS: BP 137/80
[2022-07-19] MEDS: CEFEPIME 2 GM in IV D5W 100 ML IV SCH (09:15)
[2022-07-19] MEDS: GENTAMICIN 0.1% OINT 15 GM TUBE TP SCH (11:00)
--- NOTE | 2022-07-19 11:00 | NUR ---
RN NOTES PATIENT WOUND DRESSING WAS DONE @1100 AM
--- NOTE | 2022-07-19 12:30 | NUR ---
SWING SAW OPERATOR NOTES PATIENT IS WITH ORDER FOR DISCHARGE TODAY TO [facility] , ALL DUE MEDS WERE GIVEN , PATIENT IS ALERT AND ORIENTED AND ABLE OT MAKE NEEDS KNOWN , NEONATAL SPECIALIST BY EMT AMBULANCE AROUND 1130 AND DISCHARGE INSTRUCTIONS PROVIDED TO THE RESIDENT REGARDING PAIN MEDICATION AND DR SAMANIEGO PROVIDED PRESCRIPTION , FOLLOW UP WITH PCP INSTRUCTED , EDUCATED REGARDING WOUND AND MONITOR FOR ANY S/S OF INFECTION , PATIENT WILL BE FOLLOWED UP BY A HOME HEALTH FOR WOUND MANAGEMENT AND IV ATB MEDICAITON , INSTRUCTED ALSO WHEN TO CALL 911 IN CASE OF EMERGENCY , ALL INSTRUCTIONS WERE UNDERSTOOD BY THE RESIDENT , ALL BELONGINGS WERE SIGNED AND BROUGHT BY THE PATIENT ,STILL PATIENT IV LINE RIGHT FA ON #20 G . PATIENT LEFT WITH NO SOB OR DISTRESS NOTED , NO C/O OF PAIN AND DISCOMFORT AND PATIENT LEFT IN A STABLE CONDITION WITH [facility] .
== END 2022-07-19 13:00 | disposition home health service (06) | DRG 721 ==
LOC: MED 16:14
PROVIDERS: ADMIT Nurse Practitioner Acute Care; ATTEND Student in an Organized Health Care Education/Training Program
PROC: 0JBQ0ZZ Excision of Right Foot Subcutaneous Tissue and Fascia, Open Approach (ICD-10-PCS; principal; 2022-07-14)
PROC: 0JBN0ZZ Excision of Right Lower Leg Subcutaneous Tissue and Fascia, Open Approach (ICD-10-PCS; 2022-07-14)
DX: T81.41XA Infection following a procedure, superficial incisional surgical site, initial encounter (principal); T81.31XA Disruption of external operation (surgical) wound, not elsewhere classified, initial encounter; L03.115 Cellulitis of right lower limb; F10.10 Alcohol abuse, uncomplicated; Z59.00 Homelessness unspecified; F17.210 Nicotine dependence, cigarettes, uncomplicated; Z71.6 Tobacco abuse counseling; M79.661 Pain in right lower leg; S81.811S Laceration without foreign body, right lower leg, sequela; X58.XXXS Exposure to other specified factors, sequela; Y83.8 Other surgical procedures as the cause of abnormal reaction of the patient, or of later complication, without mention of misadventure at the time of the procedure; Y92.89 Other specified places as the place of occurrence of the external cause; Z20.822 Contact with and (suspected) exposure to COVID-19; B96.5 Pseudomonas (aeruginosa) (mallei) (pseudomallei) as the cause of diseases classified elsewhere; F12.10 Cannabis abuse, uncomplicated
CPT/HCPCS: 36415; 80048-TC; 80202-TC; 83735-TC; 84100-TC; 85025-TC; 87070-TC; 87081-TC; 87186-TC; 97116-TC; 97530-TC; A6253; A6403; G0378; J0692; J0696; J1170; J3370; J3475; J7030; J7060

== ENCOUNTER 2022-07-27 00:25 | Emergency (ER) | payer MEDICAID ==
[~2022-07-27] VITALS: Ht 172.7 cm; Wt 68.0 kg
[2022-07-27 00:46] VITALS: BP 138/81
[2022-07-27] MEDS ORDERED: HYDROCODONE/APAP 5/325MG TABLET ONE (01:57)
[2022-07-27] MEDS ORDERED: HYDROCODONE/APAP 5/325MG TABLET PO ONE (02:00)
[2022-07-27] MEDS ORDERED: KETOROLAC TROMETHAMINE INJ 30 MG/ML VIAL ONE (05:19)
[2022-07-27] MEDS ORDERED: KETOROLAC TROMETHAMINE INJ 30 MG/ML VIAL IM ONE (05:30)
--- NOTE | 2022-07-27 05:34 | NUR ---
Patient discharged to home in stable condition. Written and verbal after care instructions given. Patient verbalizes understanding of instruction.
[2022-07-27] MEDS ORDERED: OXYC5TAB3 PO (08:53)
[2022-07-27] MEDS ORDERED: NAPR-1192 PO (08:53)
== END 2022-07-27 05:34 | disposition home or self-care (01) ==
LOC: ER 00:55
DX: S82.391D Other fracture of lower end of right tibia, subsequent encounter for closed fracture with routine healing (principal); S82.451D Displaced comminuted fracture of shaft of right fibula, subsequent encounter for closed fracture with routine healing; X58.XXXD Exposure to other specified factors, subsequent encounter
CPT/HCPCS: 99283; 96372; 73590; J1885

== ENCOUNTER 2022-07-27 08:30 | Emergency (ER) | payer MEDICAID ==
[~2022-07-27] VITALS: Ht 172.7 cm; Wt 65.8 kg
[2022-07-27 08:43] VITALS: BP 120/83
--- NOTE | 2022-07-27 08:43 | NUR ---
BIBS ASKING FOR PAIN MEDS, WAS HERE EARLIER FOR TIBFIB FRACTURE
[2022-07-27] MEDS ORDERED: NAPR-1192 PO (08:53)
[2022-07-27] MEDS ORDERED: OXYC5TAB3 PO (08:53)
[2022-07-27] MEDS ORDERED: HYDROCODONE/APAP 5/325MG TABLET PO ONE (09:00)
[2022-07-27] MEDS ORDERED: NAPROXEN 250 MG TABLET PO ONE (09:00)
[2022-07-27] MEDS ORDERED: HYDROCODONE/APAP 5/325MG TABLET ONE (09:03)
[2022-07-27] MEDS ORDERED: NAPROXEN 250 MG TABLET ONE (09:03)
--- NOTE | 2022-07-27 09:08 | NUR ---
Patient discharged to home in stable condition. Written and verbal after care instructions given. Patient verbalizes understanding of instruction.
== END 2022-07-27 09:09 | disposition home or self-care (01) ==
LOC: ER 08:50
DX: G89.18 Other acute postprocedural pain (principal); M79.661 Pain in right lower leg; S82.201D Unspecified fracture of shaft of right tibia, subsequent encounter for closed fracture with routine healing; S82.401D Unspecified fracture of shaft of right fibula, subsequent encounter for closed fracture with routine healing; Z79.899 Other long term (current) drug therapy; X58.XXXD Exposure to other specified factors, subsequent encounter

== ENCOUNTER → 2022-12-29 | Emergency (ER) | payer MEDICAID ==
[~2022-12-29] MED LIST: NAPR-1192 PO; OXYC5TAB3 PO
--- NOTE | 2022-12-29 17:17 | NUR ---
PT STOOD UP FROM WHEELCHAIR AND WALKED OUT OF THE ER. PT REFUSED TO BE SEEN.
== END | disposition left against medical advice (07) ==
LOC: ER 17:01
DX: Z53.21 Procedure and treatment not carried out due to patient leaving prior to being seen by health care provider (principal)